=== PATIENT | female | born 1980 | race Caucasian/White ===

== ENCOUNTER → 2021-08-18 13:59 | Outpatient (BNVA) | payer OTHER, MEDICAID, SELFPAY | PROVIDERS: PCP Internal Medicine; Visit Provider Physician Assistant | DX: Z68.36 Body mass index [BMI] 36.0-36.9, adult (principal); Z90.3 Acquired absence of stomach [part of] | CPT/HCPCS: 99202 ==

== ENCOUNTER → 2021-08-27 10:34 | Outpatient (BNVA) | payer OTHER, SELFPAY | PROVIDERS: PCP Internal Medicine; Visit Provider Physician Assistant ==

== ENCOUNTER 2021-09-05 07:32 | Outpatient (REF) | payer OTHER, SELFPAY ==
[2021-09-05 08:19] LABS: Basophils Percent Auto 0.4 % (0-2); Eosinophils Absolute Auto 0.1 X10*3/uL (0.0-0.4); Hematocrit 40.1 % (37.0-47.0); Hemoglobin 13.3 g/dl (12.0-16.0); Imm Gran Abs Auto 0.01 X10*3/uL (0.00-0.03); Imm Gran Pct Auto 0.2 % (0.0-0.4); Lymphocytes Percent Auto 19.3 % (20-40); MANUAL DIFF FLAG SCAN; Mean Corpuscular HGB Conc 33.2 g/dl (31.0-35.0); Mean Corpuscular Hemoglobin 28.7 pg (27.0-33.0); Mean Corpuscular Volume 86.6 fL (80.0-98.0); Mean Platelet Volume 10.7 fL (9.4-12.3); Monocytes Absolute Auto 0.4 X10*3/uL (0.1-1.2); Monocytes Percent Auto 7.5 % (2-11); Neutrophils Absolute Auto 3.7 x10*3/uL (2.0-8.3); Neutrophils Percent Auto 71.6 % (45-73); PLT CLUMP 1; Red Blood Count 4.63 X10*6/uL (4.20-5.50); Red Cell Distribution Width 12.5 % (11.0-16.0); SCAN SMEAR FLAG 1
[2021-09-05 08:25] LABS: Estimated Average Glucose 108 mg/dL; Hemoglobin A1c % 5.4 %
[2021-09-05 08:41] LABS: Alanine Aminotransferase 9 U/L (0-31); Albumin Level 3.9 g/dL (3.5-5.0); Alkaline Phosphatase 67 U/L (39-117); Anion Gap 13 (12-20); Aspartate Amino Transferase 9 U/L (5-31); Bilirubin Total 0.3 mg/dL (0.0-1.0); Blood Urea Nitrogen 10 mg/dL (9-16); C Reactive Protein 1.26 mg/dL (< or = 0.50); Calcium 9.1 mg/dL (8.4-10.2); Carbon Dioxide 25 mmol/L (22-29); Chloride 106 mmol/L (96-108); Cholesterol 197 mg/dL; Estimated Glomerular Filt Rate > 60; Glucose Random 88 mg/dL (60-115); HDL Cholesterol 55 mg/dL; Iron 56 mcg/dL (30-160); LDL Cholesterol Calculated 127 mg/dl; Percent Iron Saturation 15 % (15-50); Potassium 4.5 mmol/L (3.3-5.1); Sodium 139 mmol/L (135-145); Total Iron Binding Capacity 384 mcg/dL (228-428); Total Protein 6.6 g/dL (6.5-8.0); Triglycerides 79 mg/dL; Unsaturated Iron Binding 328 ug/dL
[2021-09-05 09:13] LABS: Ferritin 35 ng/mL (10-250); TSH reflex Free T4 1.58 uIU/mL (0.32-4.0); Vitamin D 25-OH Total 16.6 ng/mL (>30)
[2021-09-05 09:25] LABS: Platelet Count 183 X10*3/uL (160-400); White Blood Count 5.2 X10*3/uL (4.8-10.8)
[2021-09-05 09:26] LABS: SLIDE REVIEW VERIFIED
[2021-09-05 11:58] LABS: Insulin 8 uU/mL (2-29)
[2021-09-07 09:21] LABS: Vitamin B12 524 pg/mL (200-900)
[2021-09-07 14:57] LABS: Calcium (PTHI) 8.9 mg/dL (8.6-10.2); PTHI 79 pg/mL (14-64)
[2021-09-08 16:11] LABS: Zinc 53 mcg/dL (60-130)
[2021-09-10 01:17] LABS: Vitamin A 38 mcg/dL (38-98)
[2021-09-12 10:41] LABS: Vitamin B1 11 nmol/L (8-30)
== END 2021-09-05 07:33 | disposition home or self-care (01) ==
LOC: HO.LAB 07:32
PROVIDERS: PCP Internal Medicine; Visit Provider Physician Assistant
DX: Z01.818 Encounter for other preprocedural examination (principal); E66.9 Obesity, unspecified; Z90.3 Acquired absence of stomach [part of]
CPT/HCPCS: 36415; 80053; 80061; 82306; 82607; 82728; 82746; 83036; 83525; 83540; 83970; 84425; 84443; 84590; 84630; 85025; 86140

== ENCOUNTER 2021-09-23 15:49 | Outpatient (REF) | payer OTHER, SELFPAY ==
[2021-09-24 13:07] LABS: H Pylori Breath Test Negative (Negative)
== END 2021-09-23 15:50 | disposition home or self-care (01) ==
LOC: CF 15:49
PROVIDERS: Visit Provider Physician Assistant
DX: E66.9 Obesity, unspecified (principal); Z90.3 Acquired absence of stomach [part of]
CPT/HCPCS: 36415; 83013; 99211; 99212

== ENCOUNTER → 2021-09-24 08:02 | Outpatient (BNVA) | payer OTHER, SELFPAY | PROVIDERS: PCP Internal Medicine; Visit Provider Dietitian, Registered ==

== ENCOUNTER → 2021-10-08 08:23 | Outpatient (BNVA) | payer OTHER, SELFPAY | PROVIDERS: PCP Internal Medicine; Referring Provider Physician Assistant; Visit Provider Dietitian, Registered | DX: E66.9 Obesity, unspecified (principal); Z68.35 Body mass index [BMI] 35.0-35.9, adult; Z71.3 Dietary counseling and surveillance | CPT/HCPCS: 97802 ==

== ENCOUNTER 2021-10-12 09:04 | Outpatient (REF) | payer OTHER, SELFPAY ==
--- NOTE | ~2021-10-12 | US_ITS ---
EXAMINATION: US COMPLETE ABDOMEN WITH LIVER ELASTOGRAPHY CLINICAL INFORMATION: Obesity COMPARISON: None. TECHNIQUE: Real-time imaging of the abdominal viscera. Noninvasive ultrasound liver fibrosis assessment is performed using Kyler ElastPQ point quantification shear wave elastography (2D-SWE) with a C5-2 MHz transducer. Multiple elastography samples are obtained. FINDINGS: PANCREAS: Normal. The visualized pancreatic head and body are normal in appearance. The remainder of the pancreas is obscured from visualization by the overlying bowel gas. ABDOMINAL AORTA: The proximal, middle, and distal aortic segments are normal in caliber. INFERIOR VENA CAVA: Visualized portions are normal. LIVER: Mild diffuse increased hepatic echogenicity. Hepatic contour appears unremarkable. No focal lesion or intrahepatic biliary duct dilatation. The right lobe measures 13 cm in length. The left lobe measures 10.9 cm in length. Portal flow is hepatopedal Shear wave liver elastography median stiffness is 1.62 m/s (reference: normal median stiffness is 1.3 m/s or less). IQR/median stiffness to assess sampling precision is 0.41 (reference: good quality data set is IQR/median stiffness of 0.15 or less). GALLBLADDER: Surgically absent. COMMON BILE DUCT: Normal in caliber measuring 0.23 cm in diameter. RIGHT KIDNEY: Normal. No hydronephrosis. No renal calculi or focal parenchymal lesions. The kidney measures 11.8 cm in maximum dimension. LEFT KIDNEY: Normal. No hydronephrosis. No renal calculi or focal parenchymal lesions. The kidney measures 10.4 cm in maximum dimension. SPLEEN: Normal. The spleen measures 12.1 cm in maximum dimension. FREE FLUID: None. US/US abdomen comp w elastography IMPRESSION: 1. Diffuse increased hepatic echogenicity, differential consideration include hepatic steatosis, hepatocellular disease. No focal lesion seen. No biliary duct dilatation. 2. Liver elastography: Median stiffness 1.62 m/s. Liver Stiffness less than 1.7 m/s: In the absence of other known clinical signs, rules out compensated advanced chronic liver disease. 3.IQR/median stiffness to assess sampling precision is 0.41. This is suboptimal, ideally should be 0.15 or less. 4. Status post cholecystectomy. REFERENCE: Society of Radiologists in Ultrasound Liver Stiffness Thresholds (2020): LIVER STIFFNESS THRESHOLDS: *Liver Stiffness equal or less than 1.3 m/s: High probability of being normal. *Liver Stiffness less than 1.7 m/s: In the absence of other known clinical signs, rules out compensated advanced chronic liver disease. *Liver Stiffness 1.7-2.1 m/s: Suggestive of compensated advanced chronic liver disease but need further test for confirmation. *Liver Stiffness over 2.1 m/s: Rules in compensated advanced chronic liver disease. *Liver Stiffness over 2.4 m/s: Suggestive of clinically significant portal hypertension. QUALITY OF DATA SET: *IQR/Median value equal or less than 0.15 implies a quality data set. *IQR/Median value over 0.15 implies a poor quality data set. SIGNIFICANT CHANGE FROM PRIOR EXAM: Significant change if liver stiffness measurement is 10% or greater from prior exam. OTHER CONSIDERATIONS: The stage of liver fibrosis may be overestimated in the setting of acute hepatitis, liver inflammation, elevated liver function tests, hepatic vascular congestion, obstructive cholestasis, non-fasting state, and infiltrative diseases such as amyloidosis and lymphoma. In some patients with NAFLD, the liver stiffness thresholds for compensated advanced chronic liver disease may be lower. In causes other than viral hepatitis and NAFLD, liver stiffness thresholds are not well established.
--- NOTE | ~2021-10-12 | FL_ITS ---
EXAMINATION: XR FLUOROSCOPY UPPER GI WITH AIR CLINICAL INFORMATION: Obesity. Gastric sleeve surgery 5 years ago at [facility]. COMPARISON: None. TECHNIQUE: Routine upper GI air-contrast study was performed. FINDINGS: Following oral administration of thick barium and effervescent granules, there is normal propagation of bolus from the oral cavity through the pharynx and esophagus and into the stomach without any evidence of obstruction, and narrowing or stricture. On placing supine and prone, there is lrlgtdrz-ph-obcjz gastroesophageal reflux. There is evidence of gastric reduction sleeve surgery with remaining stomach, duodenal bulb and the sweep appearing normal caliber. The mucosal pattern of the stomach and the duodenum is unremarkable. No hiatal hernia seen. FLUOROSCOPY TIME: 1.7 minutes DOSE AREA PRODUCT: 30.035 uGy-m2 (microgray-meter squared) FL/FL upper GI w air IMPRESSION: Fozuaoef-xc-jgvhl gastroesophageal reflux without hiatal hernia. There is gastric reduction surgical changes. The mucosal pattern of stomach, duodenum and the sweep is normal.
--- NOTE | ~2021-10-12 | XR_ITS ---
EXAMINATION: XR CHEST CLINICAL INFORMATION: Preprocedure examination COMPARISON: None TECHNIQUE: 2 views of the chest were obtained. FINDINGS: The lungs are well-expanded. There is no focal consolidation, edema or effusion. No pneumothorax. The cardiomediastinal silhouette is within normal limits. No acute osseous abnormality. XR/XR chest 2V IMPRESSION: No acute pulmonary disease.
== END 2021-10-12 09:05 | disposition home or self-care (01) ==
LOC: HO.US 09:04
PROVIDERS: PCP Internal Medicine; Visit Provider Physician Assistant
DX: Z01.818 Encounter for other preprocedural examination (principal); E66.9 Obesity, unspecified; Z90.3 Acquired absence of stomach [part of]
CPT/HCPCS: 71046; 74246; 76705; 76981

== ENCOUNTER → 2021-11-05 08:23 | Outpatient (BNVA) | payer OTHER, SELFPAY | PROVIDERS: PCP Internal Medicine; Referring Provider Physician Assistant; Visit Provider Dietitian, Registered | DX: E66.9 Obesity, unspecified (principal) | CPT/HCPCS: 97803 ==

== ENCOUNTER → 2021-12-03 08:11 | Outpatient (BNVA) | payer OTHER, SELFPAY | PROVIDERS: PCP Internal Medicine; Referring Provider Physician Assistant; Visit Provider Dietitian, Registered | DX: Z13.89 Encounter for screening for other disorder (principal) ==

== ENCOUNTER → 2021-12-17 15:48 | Outpatient (BNVA) | payer OTHER, SELFPAY | PROVIDERS: PCP Internal Medicine; Visit Provider Physician Assistant | DX: Z13.89 Encounter for screening for other disorder (principal) ==

== ENCOUNTER 2022-06-30 08:57 | Outpatient (REF) | payer OTHER, SELFPAY ==
[2022-06-30 10:20] LABS: MANUAL DIFF FLAG NO
--- NOTE | 2022-06-30 10:23 | ECG_ITS ---
Test Reason : pre op Blood Pressure : / mmHG Vent. Rate : 072 BPM Atrial Rate : 072 BPM P-R Int : 148 ms QRS Dur : 084 ms QT Int : 366 ms P-R-T Axes : -09 021 019 degrees QTc Int : 400 ms Normal sinus rhythm Normal ECG No previous ECGs available Referred By: Piper Pavon Electronically Signed By:RUDY ENCARNACION MD
[2022-06-30 10:55] LABS: Basophils Percent Auto 0.8 % (0-2); Eosinophils Absolute Auto 0.1 X10*3/uL (0.0-0.4); Eosinophils Percent Auto 2.2 % (0-4); Hematocrit 42.9 % (37.0-47.0); Imm Gran Abs Auto 0.01 X10*3/uL (0.00-0.03); Imm Gran Pct Auto 0.2 % (0.0-0.4); Lymphocytes Absolute Auto 1.1 X10*3/uL (1.2-4.9); Lymphocytes Percent Auto 22.7 % (20-40); Mean Corpuscular HGB Conc 32.6 g/dl (31.0-35.0); Mean Corpuscular Hemoglobin 28.9 pg (27.0-33.0); Mean Corpuscular Volume 88.5 fL (80.0-98.0); Mean Platelet Volume 10.5 fL (9.4-12.3); Monocytes Absolute Auto 0.4 X10*3/uL (0.1-1.2); Monocytes Percent Auto 8.6 % (2-11); Neutrophils Absolute Auto 3.2 x10*3/uL (2.0-8.3); Neutrophils Percent Auto 65.5 % (45-73); Platelet Count 242 X10*3/uL (160-400); Red Blood Count 4.85 X10*6/uL (4.20-5.50); Red Cell Distribution Width 13.2 % (11.0-16.0); White Blood Count 4.9 X10*3/uL (4.8-10.8)
[2022-06-30 11:17] LABS: Estimated Average Glucose 108 mg/dL; Hemoglobin A1c % 5.4 %
[2022-06-30 11:49] LABS: Alanine Aminotransferase 31 U/L (0-31); Albumin Level 4.2 g/dL (3.5-5.0); Alkaline Phosphatase 75 U/L (39-117); Anion Gap 13 (12-20); Aspartate Amino Transferase 13 U/L (5-31); Bilirubin Total 0.4 mg/dL (0.0-1.0); Blood Urea Nitrogen 12 mg/dL (9-16); C Reactive Protein 0.84 mg/dL (< or = 0.50); Calcium 9.5 mg/dL (8.4-10.2); Carbon Dioxide 29 mmol/L (22-29); Chloride 102 mmol/L (96-108); Cholesterol 265 mg/dL; Estimated Glomerular Filt Rate > 60; Glucose Random 77 mg/dL (60-115); HDL Cholesterol 78 mg/dL; Iron 123 mcg/dL (30-160); LDL Cholesterol Calculated 147 mg/dl; Percent Iron Saturation 27 % (15-50); Potassium 4.4 mmol/L (3.3-5.1); Sodium 140 mmol/L (135-145); Total Iron Binding Capacity 457 mcg/dL (228-428); Total Protein 6.9 g/dL (6.5-8.0); Triglycerides 200 mg/dL; Unsaturated Iron Binding 334 ug/dL
[2022-06-30 12:13] LABS: Folate 10.8 ng/mL (> or = 4.0); Vitamin B12 341 pg/mL (200-900)
[2022-06-30 12:15] LABS: Ferritin 42 ng/mL (10-250); Insulin 9 uU/mL (2-29); TSH reflex Free T4 1.57 uIU/mL (0.32-4.0)
[2022-06-30 13:55] LABS: Vitamin D 25-OH Total 22.3 ng/mL (>30)
[2022-07-01 14:16] LABS: Calcium (PTHI) 9.4 mg/dL (8.6-10.2); PTHI 90 pg/mL (16-77)
[2022-07-04 17:15] LABS: Vitamin A 79 mcg/dL (38-98)
[2022-07-05 09:47] LABS: Zinc 84 mcg/dL (60-130)
[2022-07-06 05:50] LABS: Vitamin B1 9 nmol/L (8-30)
== END 2022-06-30 08:58 | disposition home or self-care (01) ==
LOC: HO.LAB 08:57
PROVIDERS: PCP Internal Medicine; Visit Provider Physician Assistant Surgical
DX: Z01.818 Encounter for other preprocedural examination (principal); E66.9 Obesity, unspecified; Z90.3 Acquired absence of stomach [part of]
CPT/HCPCS: 36415; 80053; 80061; 82306; 82607; 82728; 82746; 83036; 83525; 83540; 83970; 84425; 84443; 84590; 84630; 85025; 86140; 93005; 99212

== ENCOUNTER 2022-07-02 09:45 | Outpatient (REF) | payer OTHER, SELFPAY ==
--- NOTE | ~2022-07-02 | XR_ITS ---
EXAMINATION: XR CHEST CLINICAL INFORMATION: Preprocedure COMPARISON: Previous chest x-ray September 2021 TECHNIQUE: 2 views of the chest were obtained. FINDINGS: No significant abnormality is noted involving the heart, lungs, mediastinum, bony thorax or soft tissues. XR/XR chest 2V IMPRESSION: Unremarkable examination.
== END 2022-07-02 09:46 | disposition home or self-care (01) ==
LOC: HO.XRAY 09:45
PROVIDERS: PCP Internal Medicine; Visit Provider Physician Assistant Surgical
DX: Z01.818 Encounter for other preprocedural examination (principal)
CPT/HCPCS: 71046

== ENCOUNTER → 2022-07-27 10:16 | Outpatient (BNVA) | payer OTHER, SELFPAY | PROVIDERS: PCP Internal Medicine; Visit Provider Physician Assistant Surgical | DX: E66.9 Obesity, unspecified (principal); Z68.37 Body mass index [BMI] 37.0-37.9, adult | CPT/HCPCS: 99212 ==

== ENCOUNTER → 2022-08-18 10:26 | Outpatient (BNVA) | payer OTHER, SELFPAY | PROVIDERS: PCP Internal Medicine; Visit Provider Physician Assistant Surgical | DX: E66.9 Obesity, unspecified (principal); Z68.38 Body mass index [BMI] 38.0-38.9, adult | CPT/HCPCS: 99212 ==

== ENCOUNTER → 2022-09-30 10:23 | Outpatient (BNVA) | payer OTHER, SELFPAY | PROVIDERS: PCP Internal Medicine; Visit Provider Physician Assistant Surgical | DX: E66.9 Obesity, unspecified (principal); Z68.37 Body mass index [BMI] 37.0-37.9, adult | CPT/HCPCS: 99212 ==

== ENCOUNTER → 2022-10-07 10:58 | Outpatient (BNVA) | payer OTHER, SELFPAY | PROVIDERS: PCP Internal Medicine; Visit Provider Dietitian, Registered | DX: E66.9 Obesity, unspecified (principal); Z71.3 Dietary counseling and surveillance | CPT/HCPCS: 97803 ==

== ENCOUNTER → 2022-10-29 10:24 | Outpatient (BNVA) | payer OTHER, SELFPAY | PROVIDERS: PCP Internal Medicine; Visit Provider Physician Assistant Surgical | DX: E66.9 Obesity, unspecified (principal); Z68.37 Body mass index [BMI] 37.0-37.9, adult | CPT/HCPCS: 99212 ==

== ENCOUNTER 2024-12-05 14:14 | Outpatient (REF) | payer OTHER, SELFPAY ==
--- NOTE | ~2024-12-05 | XR_ITS ---
EXAMINATION: XR LUMBOSACRAL SPINE CLINICAL INFORMATION: PAIN COMPARISON: None available. TECHNIQUE: Three views of the lumbosacral spine. FINDINGS: Marginal osteophyte formation and syndesmophyte formation at T11-12 T12-L1 levels. Endplate sclerosis and decreased intervertebral disc height involving the lower thoracic spine, L1-2, and L3-4. No acute cortical disruption or malalignment. No lytic or blastic lesions. Spina bifida occulta, S1. XR/XR lumbar spine 2-3V IMPRESSION: Multilevel lower thoracic and lumbar spondylosis, mild. Seronegative arthritis should be considered. Electronically signed by: Levi Escobar MD 12/07/2024 09:51 AM EDT
--- OUTSIDE RECORDS SUMMARY | 2024-12-05 17:10 | XMS_ITS ---
Author Organization [facility] Address [address] [place], [place] [id number] Care Team Providers Care Weight Control Lecturer Name Role Phone [facility] Primary Care Provider Brian Salinas Unavailable [phone] Encounters Encounter Location Date Provider Diagnosis [facility] [address] [place] [address] [phone] 06/07/2023 Brian Goncalves Plan Of Treatment No Information Progress Notes * Miladis KRAFTDOB:1979 (43 yo F)Acc No.[id number]:06/07/2023 Patient:?Miladis Kraft :1980???Age:43 Y???Sex:Female Address:[address], [place] [address] * true * Date:? Generated for Sasha jama/Law/eTransmitting on:?12/05/2024 05:10 PM EDT
--- OUTSIDE RECORDS SUMMARY | 2024-12-05 17:10 | XMS_ITS | Clinical Summary ---
Author Organization [facility] [employer] [facility] it Address [address] [place] [address] Care Team Providers Care Globe Cleaner Name Role Phone Marii Stack MD Primary Care Provider [phone] Surgical History Surgery Date Site/Laterality Comments CHOLECYSTECTOMY PROCEDURE: VT LAPAROSCOPY SURG CHOLECYSTECTOMY HYSTERECTOMY PROCEDURE: HISTORICAL HYSTERECTOMY OTHER SURGICAL HISTORY PROCEDURE: HISTORICAL SUPRACERVICAL HYSTERECTOMY W/O BSO GASTRIC BYPASS PROCEDURE: VT GASTRIC RSTCV W/BYP W/SM INT RCNSTJ LIMIT ABSRPJ Medical History Medical History Date Comments History of bilateral tubal ligation DX:History of bilateral tubal ligation Bunion of great toe of right foot DX:Bunion of great toe of right foot Carpal tunnel syndrome DX:Carpal tunnel syndrome Chest pain DX:Chest pain Chronic arthralgias of knees and hips DX:Chronic arthralgias of knees and hips; COMMENT: and elbows Chronic constipation DX:Chronic constipation Chronic headache disorder DX:Chr onic headache disorder 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 DX:ADELE III (cervical intraep 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 Cough with fever DX:Cough with f ever Fibromyalgia DX:Fibromyalgia Gastroesophageal reflux disease DX:Gastroesophageal reflux disease Infectious mononucleosis DX:Infe ctious mononucleosis Migraine headache with aura DX:M igraine headache with aura Calcium nephrolithiasis DX:Calci um nephrolithiasis Obesity DX:Obesity LGSIL Pap smear of vagina DX:LGS IL Pap smear of vagina Trochanteric bursitis DX:Trochan teric bursitis; COMMENT: bilateral Ankle sprain DX:Ankle sprain Iron deficiency anemia DX:Iron d eficiency anemia Social History Tobacco Use Types Packs/Day Years Used Date Smoking Tobacco: Never Assessed Comments Unknown Sex and Gender Information Value Date Recorded Sex Assigned at Not on file Legal Sex Female 3:24 AM EST Gender Identity Not on file Sexual Orientation Not on file Obstetrics History Last Filed Vital Signs Vital Sign Reading Time Taken Comments Blood Pressure 113/76 01/12/2022 3:22 PM EDT Pulse 89 01/12/2022 3:22 PM EDT Temperature - - Respiratory Rate - - Oxygen Saturation - - Inhaled Oxygen Concentration - - Weight 93.9 kg (207 lb 1.3 oz) 01/12/2022 3:22 P M EDT Height 158.8 cm (5' 2.5 ) 01/12/2022 3:22 PM EDT Body Mass Index 37.27 01/12/2022 3:22 PM EDT Plan of Treatment Health Maintenance Due Date Last Done Comments Breast Cancer Screening 1980 DTaP,Tdap,and Td Vaccines (1 - Tdap) 1997 Hepatitis B Vaccines (1 of 3 - 19+ 3-dose series) 1997 Cervical Cancer Screening: P ap Smear 1999 Colorectal Cancer Screening: Colonoscopy 07/18/2022 Depression Screening 07/18/2022 HIV Screening 07/18/2022 Hepatitis C Screening 07/18/2022 Social Influencers of Health Screening 07/18/2022 COVID-19 Vaccine (2023-2 5 season) 2024 Influenza Vaccine (Season Ended) 2025 HIB Vaccines Aged Out No longer eligi ble based on patient's age to complete this topic HPV Vaccines Aged Out No longer eligi ble based on patient's age to complete this topic Hepatitis A Vaccines Aged Out No long er eligible based on patient's age to complete this topic IPV Vaccines Aged Out No longer eligi ble based on patient's age to complete this topic MMR Vaccines Aged Out No longer eligi ble based on patient's age to complete this topic Meningococcal ACWY Vaccine Aged Out N o longer eligible based on patient's age to complete this topic Meningococcal B Vaccine Aged Out No l onger eligible based on patient's age to complete this topic Pneumococcal Vaccine: Pediat rics (0 to 5 Years) and At-Risk Patients (6 to 64 Years) Aged Out No longer eligible b ased on patient's age to complete this topic RSV Immunization Patients Un latrice 20 months Aged Out No longer eligible b ased on patient's age to complete this topic Varicella Vaccines Aged Out No longer eligible based on patient's age to complete this topic Care Teams Globe Cleaner Relationship Specialty Start Date End Date Marii Stack MD [address] [place] [address] PCP - General Internal Medicine 01/05/22
--- OUTSIDE RECORDS SUMMARY | 2024-12-05 17:10 | XMS_ITS ---
Author Organization [facility] Address [address] [facility] [address] [place], [place] [id number] Care Team Providers Care Pick Up Worker Name Role Phone [facility] Primary Care Provider Ki mccrayeliasnicholas Goncalves Brian Unavailable [phone] Encounters Encounter Location Date Provider Diagnosis [facility] [address] [place] [phone] 07/05/2023 Brian Goncalves Plan Of Treatment No Information Progress Notes * Miladis KRAFTDOB:1979 (44 yo F)Acc No.[id number]:07/05/2023 Case Management Patient:?Miladis KRAFT Provider:?Brian Carter :1980???Age:43 Y???Sex:Female D ate:07/05/2023 Address:[address] [facility] Pcp:[facility] Subjective: * Chief Complaints: * ??? * Medical History:? Objective: Assessment: Plan: * Treatment: * Images: Billing Information: * Visit Code:? * Procedure Codes:? Care Plan Details* * Electronic signature of Brian Goncalves on 12/05/2024 at 05:10 PM EDT Sign off status: Pending * Provider:Joyce Carter Date:?07/05/2023 Generated for Sasha jama/Law/eTransmitting on:?12/05/2024 05:10 PM EDT
--- OUTSIDE RECORDS SUMMARY | 2024-12-05 17:10 | XMS_ITS ---
Author Organization [facility] Address [address] [place], [place] [phone] Care Team Providers Care Studio Potter Name Role Phone [facility] Primary Care Provider Brian Salinas Unavailable [phone] Encounters Encounter Location Date Provider Diagnosis [facility] [address] [place] [phone] 06/06/2023 Brian Goncalves Plan Of Treatment No Information Progress Notes * Miladis KRAFTDOB:1979 (43 yo F)Acc No.[id number]:06/06/2023 Patient:?Miladis Kraft :1980???Age:43 Y???Sex:Female Address:[address], [place] [address] * true * Date:? Generated for Sasha jama/Law/eTransmitting on:?12/05/2024 05:10 PM EDT
--- OUTSIDE RECORDS SUMMARY | 2024-12-05 17:10 | XMS_ITS | Patient Health Record ---
Author Organization [facility] Address [address] [place], [place] [phone] Care Team Providers Care Mandarin Chinese Teacher Name Role Phone [facility] Primary Care Provider Brian Salinas [phone] Reason For Referral No Information Plan Of Treatment No Information Insurance Providers Payer Name Payer Address Payer Phone Subscriber Number Group Number Insured Name Patient Relationship to Insured Coverage Start Date Coverage End Date [place] Standard [address] [place] [address] [id number] Miladis Best Self - patient is the insured 3 3
== END 2024-12-05 14:15 | disposition home or self-care (01) ==
LOC: HO.XRAY 14:14
PROVIDERS: PCP Internal Medicine; Visit Provider Registered Nurse
DX: M54.9 Dorsalgia, unspecified (principal)
CPT/HCPCS: 72100

== ENCOUNTER → 2024-12-05 14:25 | Outpatient (BNV) | payer OTHER, SELFPAY | PROVIDERS: PCP Internal Medicine; Visit Provider Radiology Diagnostic Radiology | DX: M54.50 Low back pain, unspecified (principal) | CPT/HCPCS: 72100 ==

== ENCOUNTER 2025-03-26 14:58 | Outpatient (AMB) | payer OTHER, SELFPAY ==
--- NOTE | 2025-03-26 15:42 | A.OFFVIS_ITS ---
Intake Visit Reasons: 6 weeks Allergies No Known Allergies Allergy (Verified 03/26/25 15:47) Medication List - Last Reconciled 03/26/25 by Mabel Milian CNP buspirone 10 mg PO BID celecoxib (Celebrex) 200 mg PO BID cholecalciferol (vitamin D3) 125 mcg PO DAILY cyanocobalamin (vitamin B-12) 500 mcg PO DAILY diclofenac sodium 75 mg PO BID PRN doxepin (Silenor) 3 mg PO BEDTIME PRN dulaglutide (Trulicity) 4.5 mg subcut QWEEK duloxetine 60 mg PO DAILY gabapentin 800 mg PO TID hydroxyzine HCl 25 mg PO TID PRN prednisone 40 mg PO DAILY PRN sertraline 25 mg PO DAILY sumatriptan succinate 50 mg PO tizanidine 4 mg PO TID PRN topiramate 50 mg PO BID verapamil ER 240 mg PO DAILY HPI Comments Details: 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 Ongoing generalized body pains from FM. Following with [facility] and [facility]. Had injection to back and both hips which did not help much, and will be getting injection to knees and R shoulder. Has numbness, needle-type and burning-type pain in legs, describes as feeling like ?hot water? on legs. Was off duloxetine for period of time due to insurance issue, back on medication. Taking gabapentin 800mg three times a day. Walking with cane, no falls. Headaches are happening about 4x/week with photophobia and sonophobia. May be triggered by bright light and sun. Sleep was not so good, despite reported recent doxepin dose increase. Mood was not so good because of the pain. She has upcoming appointment with psychiatrist and works with therapist weekly. Generalized body pains from FM, burning-type. Back pain all over, feels like ?pinching? or burning, worse if sitting or standing too long. Topiramate had helped with headaches some initially. Throbbing-type pain with photophobia and sonophobia, no nausea or vomiting. Pain in arms and hands. Always in pain, burning inside body, and lot of fatigue. Had stopped working. Pain whole body despite taking gabapentin and duloxetine. Bilateral lateral ankle pain and pain in right wrist and forearm. Since 2014, she has had pain all over her body, including her back, limbs proximally and distally, in the joints, and muscles. Around 2017, she started with numbness and tingling in her hands intermittently. No persistent numbness, burning, or tingling in her feet. No weakness. No trouble with cognitive abilities. No trouble with bladder or bowel control. [facility], [facility] Medical History (Updated 03/26/25 @ 16:09 by Mabel Milian CNP) Migraine Insomnia Tension headache Fibromyalgia Peripheral neuropathy Surgical History Hx of tubal ligation Hx of cholecystectomy Hx of abdominal hysterectomy History of sleeve gastrectomy Family History Mother Thyroid condition Diabetes Ovarian cancer Anemia Heart problem Father Heart problem Sister Heart problem Breast cancer Sister Anemia Diabetes Sister Diabetes Thyroid condition Sister No problems noted. Sister No problems noted. Brother Anemia Diabetes Brother No problems noted. Brother Diabetes Brother No problems noted. Brother No problems noted. Social History Alcohol intake: never Patient Tobacco Use Status: Never used Tobacco Review of Systems Const Denies chills, Denies daytime sleepiness, Reports difficulty sleeping, Reports fatigue, Denies fever(s), Denies frequent falls, Reports headache(s), Denies increased appetite, Denies poor appetite, Denies snoring, Denies weakness, Denies weight gain and Denies weight loss Eyes Denies loss of vision ENT Denies vertigo, Denies dizziness, Reports headache(s) and Reports neck pain Card Denies chest pain at rest, Denies chest pain with activity, Denies syncope, Denies leg edema, Denies palpitations, Denies dyspnea and Denies dyspnea on exertion Resp Denies cough, Denies dyspnea, Denies dyspnea on exertion and Denies snoring GI Denies abdominal pain, Denies constipation, Denies heartburn, Denies diarrhea and Denies nausea Denies urinary frequency, Denies urinary incontinence and Denies urinary urgency Musc Denies abnormal gait, Reports back pain, Reports myalgias, Reports arthralgias, Reports neck pain, Reports numbness and Denies tingling Neuro Denies abnormal gait, Denies vertigo, Denies dizziness, Denies syncope, Denies frequent falls, Reports headache(s), Denies lack of coordination, Denies loss of vision, Denies memory loss, Reports numbness, Denies Other visual disturbances, Denies restless legs, Denies seizure-like activity, Denies tingling, Denies paresthesias, Denies tremor(s) and Denies weakness Psych Reports anxiety, Reports depression, Denies auditory hallucinations, Denies memory loss and Denies visual hallucinations Endo Reports fatigue and Denies palpitations Physical Exam Const Other: General Appearance:? normal, in no acute distress. Heart:? S1, S2 normal, no murmurs. Lungs:? clear anteriorly and posteriorly. Musculoskeletal:? normal. Extremities:? no edema. Psych:? alert, oriented, cognitive function intact, cooperative with exam. Neuro Other: Abnormal Neurological Findings:?Submaximal effort on motor testing. Walking with cane. Mental Status: alert and oriented X 3. Normal attention, orientation, memory, and affect. Cranial Nerves: Pupils are equal, round, and reactive to light. External ocular muscles are intact. Visual millan are full, no ptosis. Face is symmetrical, no facial weakness or droop. Facial sensations are normal. Tongue protrudes in midline. Palate elevates symmetrically. Shoulder shrugging is normal Motor Examination: Normal muscle tone, bulk and strength. No atrophy or fasciculations. No drift of the extended upper extremities. DTR 2+. Plantars are flexor. Sensory Exam: Normal light touch, temperature, pinprick, vibration, and joint- position sensations. Rhomberg sign is absent. Coordination: No ataxia. No titubation. Gait Exam: With came. Cerebellar Signs: Nhypac-wz-fvoq is okay. Extrapyramidal System: No tremor, rigidity with normal facial expressions. No bradykinesia. No bradyphrenia. Normal arm swing and posture. No propulsion or retropulsion. Speech: Normal. No dysphasia or dysarthria. Results Reviewed Results Reviewed: [address] [address] XRay Report Signed Patient: Miladis Best MR#: [id number] : 1980 Acct:[id number] Age/Sex: 44 / F ADM Date: 12/05/24 Loc: [facility] Attending Dr: Mabel Milian CNP Ordering Physician: Maebl Milian CNP Date of Service: 12/05/24 Procedure(s): XR lumbar spine 2-3V Accession Number(s): [id number] cc: Marii Stack MD; Mabel Milian CNP~ EXAMINATION: XR LUMBOSACRAL SPINE CLINICAL INFORMATION: PAIN COMPARISON: None available. TECHNIQUE: Three views of the lumbosacral spine. FINDINGS: Marginal osteophyte formation and syndesmophyte formation at T11-12 T12-L1 levels. Endplate sclerosis and decreased intervertebral disc height involving the lower thoracic spine, L1-2, and L3-4. No acute cortical disruption or malalignment. No lytic or blastic lesions. Spina bifida occulta, S1. XR/XR lumbar spine 2-3V IMPRESSION: Multilevel lower thoracic and lumbar spondylosis, mild. Seronegative arthritis should be considered. Electronically signed by: Levi Escobar MD 12/07/2024 09:51 AM EDT RP Dictated By: Levi Dejesus MD Signed By: <Electronically signed by Levi Streeter MD in OV> 12/07/24 0951 -- 07/05/22 NCV/EMG ALL Normal motor and sensory nerve conduction velocities in the upper and lower extremities. Normal EMG in the left C5-T1 and left L4- S1 innervated muscles. Assessment & Plan Assessment & Plan (1) Fibromyalgia: Code(s): M79.7 - Fibromyalgia Category: Medical Plan: Continue gabapentin 800mg 1 tablet three times a day. She was also taking duloxetine and prednisone which may also help with fibromyalgia symptoms. (2) Migraine: Code(s): G43.909 - Migraine, unspecified, not intractable, without status migrainosus Category: Medical Qualifiers: Migraine type: unspecified Status migrainosus presence: without status migrainosus Intractability: not intractable Qualified Code(s): G43.909 - Migra ine, unspecified, not intractable, without status migrainosus Plan: Topiramate did not help with migraine and medication was stopped. Start Depakote 250mg 1 tablet at bedtime, use/side effects reviewed. Continue sumatriptan 50mg 1 tablet as needed for migraine. (3) Tension headache: Code(s): G44.209 - Tension-type headache, unspecified, not intractable Category: Medical (4) Insomnia: Code(s): G47.00 - Insomnia, unspecified Category: Medical Qualifiers: Insomnia type: unspecified Qualified Code(s): G47.00 - Insomnia, unspecified (5) Lumbar disc disease: Code(s): M51.9 - Unspecified thoracic, thoracolumbar and lumbosacral intervertebral disc disorder Category: Medical Plan: She was following with [facility] and [facility]. (6) Anxiety and depression: Code(s): F41.9 - Anxiety disorder, unspecified; F32.A - Depression, unspecified Category: Medical Plan: Continue to work with therapist and psychiatrist. She had phone number for crisis if needed. Plan Meds tried: amitriptyline, pregabalin, duloxetine, topiramate Medications: New divalproex (Depakote) 250 mg PO BEDTIME 30 tabs 2RF 30 days Coding Level of Care Code Est Pt Level 4 (91499) Diagnoses Fibromyalgia M79.7 Migraine without status migrainosus, not intractable, unspecified migraine type G43.909 Migraine type: unspecified Status migrainosus presence: without status migrainosus Intractability: not intractable Tension headache G44.209 Insomnia, unspecified type G47.00 Insomnia type: unspecified Lumbar disc disease M51.9 Anxiety and depression F41.9; F32.A
--- OUTSIDE RECORDS SUMMARY | 2025-03-26 15:49 | XMS_ITS | Clinical Summary ---
Author Organization [facility] it Address [address] [place] [address] Care Team Providers Care Figure Model Name Role Phone Marii Stack MD Primary Care Provider [phone] Surgical History Surgery Date Site/Laterality Comments CHOLECYSTECTOMY PROCEDURE: [place] LAPAROSCOPY SURG CHOLECYSTECTOMY HYSTERECTOMY PROCEDURE: HISTORICAL HYSTERECTOMY OTHER SURGICAL HISTORY PROCEDURE: HISTORICAL SUPRACERVICAL HYSTERECTOMY W/O BSO GASTRIC BYPASS PROCEDURE: [place] GASTRIC RSTCV W/BYP W/SM INT RCNSTJ LIMIT [...] Cervical Cancer Screening: P ap Smear 1999 COVID-19 Vaccine (2023-2 5 season) 2024 Depression Screening 08/15/2024 Influenza Vaccine (#1) 2025 HIB Vaccines Aged Out No longer [...] 5 Years) and At-Risk Patients (6 to 49 Years) Aged Out No longer eligible b ased on patient's age to complete this topic RSV Immunization Patients Un latrice 20 months Aged Out No longer eligible b ased on patient's age to complete this topic Varicella Vaccines Aged Out No longer eligible based on patient's age to complete this topic Care Teams Figure Model Relationship Specialty Start Date End Date Marii Stack MD [address] [place] [address] PCP - General Internal Medicine 01/05/22
--- OUTSIDE RECORDS SUMMARY | 2025-03-26 15:49 | XMS_ITS | Patient Health Record ---
Author Organization [facility] Address [address], [place] [id number] Care Team Providers Care Fountain Server Name Role Phone Say - DO NOT USE, [facility] Primary Care Provider Unavailable Brian Goncalves Unavailable [phone] Reason For Referral No Information Plan Of Treatment No Information Insurance Providers Payer Name Payer Address Payer Phone Subscriber Number Group Number Insured Name Patient Relationship to Insured Coverage Start Date Coverage End Date [place] Medicaid Standard [address] [place] [address] [id number] Miladis Best Self - patient is the insured 3 3
== END 2025-03-26 16:12 | disposition home or self-care (01) ==
LOC: HO.HSM 14:59
PROVIDERS: PCP Internal Medicine; Visit Provider Registered Nurse
DX: M79.7 Fibromyalgia (principal); G43.909 Migraine, unspecified, not intractable, without status migrainosus; G44.209 Tension-type headache, unspecified, not intractable; G47.00 Insomnia, unspecified; M51.9 Unspecified thoracic, thoracolumbar and lumbosacral intervertebral disc disorder; F41.9 Anxiety disorder, unspecified; F32.A Depression, unspecified
CPT/HCPCS: 99214

== ENCOUNTER → 2025-03-26 14:58 | Outpatient (BNVA) | payer OTHER, SELFPAY | PROVIDERS: PCP Internal Medicine; Visit Provider Registered Nurse | DX: M79.7 Fibromyalgia (principal); G43.909 Migraine, unspecified, not intractable, without status migrainosus; G44.209 Tension-type headache, unspecified, not intractable; G47.00 Insomnia, unspecified; M51.9 Unspecified thoracic, thoracolumbar and lumbosacral intervertebral disc disorder; F41.9 Anxiety disorder, unspecified; F32.A Depression, unspecified | CPT/HCPCS: 99212 ==

== ENCOUNTER 2025-05-09 13:29 | Outpatient (AMB) | payer OTHER, SELFPAY ==
--- NOTE | 2025-05-09 14:05 | A.OFFVIS_ITS ---
Intake Visit Reasons: 6 weeks Allergies No Known Allergies Allergy (Verified 05/09/25 14:10) Medication List - Last Reconciled 05/09/25 by Mabel Milian CNP buspirone 10 mg PO BID celecoxib (Celebrex) 200 mg PO BID cholecalciferol (vitamin D3) 125 mcg PO DAILY cyanocobalamin (vitamin B-12) 500 mcg PO DAILY diclofenac sodium 75 mg PO BID PRN divalproex (Depakote) 250 mg PO BEDTIME 30 days doxepin (Silenor) 3 mg PO BEDTIME PRN dulaglutide (Trulicity) 4.5 mg subcut QWEEK duloxetine 60 mg PO DAILY gabapentin 800 mg PO TID hydroxyzine HCl 25 mg PO TID PRN prednisone 40 mg PO DAILY PRN sertraline 25 mg PO DAILY sumatriptan succinate 50 mg PO tizanidine 4 mg PO TID PRN verapamil ER 240 mg PO DAILY HPI Comments Details: Headaches were better with Depakote, which she was taking at bedtime. No medication side effects. Headaches were not as frequent or severe. Triggers included bright light, including the sun. Sumatriptan as needed did not help. Ongoing generalized body pains from FM, stable. Sleep was okay with medication. Mood was so-so, working with therapist and psychiatrist. She had surgery for R bunion yesterday. Previously, headaches were happening about 4x/week with photophobia and sonophobia, no nausea or vomiting. 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 Ongoing generalized body pains from FM. Following with [facility] and [facility]. Had injection to back and both hips which did not help much. Has numbness, needle-type and burning-type pain in legs. Was off duloxetine for period of time due to insurance issue, back on medication. Generalized body pains from FM, burning-type. Back pain all over, feels like ?pinching? or burning, worse if sitting or standing too long. Topiramate had helped with headaches some initially. Throbbing-type pain with photophobia and sonophobia, no nausea or vomiting. Pain in arms and hands. Always in pain, burning inside body, and lot of fatigue. Had stopped working. Pain whole body despite taking gabapentin and duloxetine. Bilateral lateral ankle pain and pain in right wrist and forearm. Since 2014, she has had pain all over her body, including her back, limbs proximally and distally, in the joints, and muscles. Around 2017, she started with numbness and tingling in her hands intermittently. No persistent numbness, burning, or tingling in her feet. No weakness. No trouble with cognitive abilities. No trouble with bladder or bowel control. [facility] Medical History (Updated 03/26/25 @ 16:09 by Mabel Milian CNP) Migraine Insomnia Tension headache Fibromyalgia Peripheral neuropathy Surgical History Hx of tubal ligation Hx of cholecystectomy Hx of abdominal hysterectomy History of sleeve gastrectomy Family History Mother Thyroid condition Diabetes Ovarian cancer Anemia Heart problem Father Heart problem Sister Heart problem Breast cancer Sister Anemia Diabetes Sister Diabetes Thyroid condition Sister No problems noted. Sister No problems noted. Brother Anemia Diabetes Brother No problems noted. Brother Diabetes Brother No problems noted. Brother No problems noted. Social History Alcohol intake: never Patient Tobacco Use Status: Never used Tobacco Review of Systems Const Denies chills, Denies daytime sleepiness, Reports difficulty sleeping, Reports fatigue, Denies fever(s), Denies frequent falls, Reports headache(s), Denies increased appetite, Denies poor appetite, Denies snoring, Denies weakness, Denies weight gain and Denies weight loss Eyes Denies loss of vision ENT Denies vertigo, Denies dizziness, Reports headache(s) and Reports neck pain Card Denies chest pain at rest, Denies chest pain with activity, Denies syncope, Denies leg edema, Denies palpitations, Denies dyspnea and Denies dyspnea on exertion Resp Denies cough, Denies dyspnea, Denies dyspnea on exertion and Denies snoring GI Denies abdominal pain, Denies constipation, Denies heartburn, Denies diarrhea and Denies nausea Denies urinary frequency, Denies urinary incontinence and Denies urinary urgency Musc Denies abnormal gait, Reports back pain, Reports myalgias, Reports arthralgias, Reports neck pain, Reports numbness and Denies tingling Neuro Denies abnormal gait, Denies vertigo, Denies dizziness, Denies syncope, Denies frequent falls, Reports headache(s), Denies lack of coordination, Denies loss of vision, Denies memory loss, Reports numbness, Denies Other visual disturbances, Denies restless legs, Denies seizure-like activity, Denies tingling, Denies paresthesias, Denies tremor(s) and Denies weakness Psych Reports anxiety, Reports depression, Denies auditory hallucinations, Denies memory loss and Denies visual hallucinations Endo Reports fatigue and Denies palpitations Physical Exam Const Other: General Appearance:? normal, in no acute distress. Heart:? S1, S2 normal, no murmurs. Lungs:? clear anteriorly and posteriorly. Musculoskeletal:? normal. Extremities:? no edema. Psych:? alert, oriented, cognitive function intact, cooperative with exam. Neuro Other: Abnormal Neurological Findings:?Submaximal effort on motor testing. Walking with crutches. Mental Status: alert and oriented X 3. Normal attention, orientation, memory, and affect. Cranial Nerves: Pupils are equal, round, and reactive to light. External ocular muscles are intact. Visual millan are full, no ptosis. Face is symmetrical, no facial weakness or droop. Facial sensations are normal. Tongue protrudes in midline. Palate elevates symmetrically. Shoulder shrugging is normal Motor Examination: As above, otherwise normal muscle tone, bulk and strength. No atrophy or fasciculations. No drift of the extended upper extremities. DTR 2+. Plantars are flexor. Sensory Exam: Normal light touch, temperature, pinprick, vibration, and joint- position sensations. Rhomberg sign is absent. Coordination: No ataxia. No titubation. Gait Exam: With crutches. Cerebellar Signs: [id number] is okay. Extrapyramidal System: No tremor, rigidity with normal facial expressions. No bradykinesia. No bradyphrenia. Normal arm swing and posture. No propulsion or retropulsion. Speech: Normal. No dysphasia or dysarthria. Results Reviewed Results Reviewed: [address] [address] [place] Report Signed Patient: Miladis Best MR#: [id number] : 1980 Acct:[id number] Age/Sex: 44 / F ADM Date: 12/05/24 Loc: HO.XRAY Attending Dr: Mable Milian CNP Ordering Physician: Mabel Milian CNP Date of Service: 12/05/24 Procedure(s): XR lumbar spine 2-3V Accession Number(s): [id number] cc: Marii Stack MD; Mabel Milian CNP~ EXAMINATION: XR LUMBOSACRAL SPINE CLINICAL INFORMATION: PAIN COMPARISON: None available. TECHNIQUE: Three views of the lumbosacral spine. FINDINGS: Marginal osteophyte formation and syndesmophyte formation at T11-12 T12-L1 levels. Endplate sclerosis and decreased intervertebral disc height involving the lower thoracic spine, L1-2, and L3-4. No acute cortical disruption or malalignment. No lytic or blastic lesions. Spina bifida occulta, S1. XR/XR lumbar spine 2-3V IMPRESSION: Multilevel lower thoracic and lumbar spondylosis, mild. Seronegative arthritis should be considered. Electronically signed by: Levi Escobar MD 12/07/2024 09:51 AM EDT RP Dictated By: Levi Dejesus MD Signed By: <Electronically signed by Levi Streeter MD in OV> 12/07/24 0951 -- 07/05/22 NCV/EMG ALL Normal motor and sensory nerve conduction velocities in the upper and lower extremities. Normal EMG in the left C5-T1 and left L4- S1 innervated muscles. Assessment & Plan Assessment & Plan (1) Migraine: Code(s): G43.909 - Migraine, unspecified, not intractable, without status migrainosus Category: Medical Qualifiers: Migraine type: unspecified Status migrainosus presence: without status migrainosus Intractability: not intractable Qualified Code(s): G43.909 - Migraine, unspecified, not intractable, without status migrainosus Plan: Continue Depakote 250mg 1 tablet at bedtime. Sumatriptan as needed did not help and medication was stopped. Start rizatriptan 10mg 1 tablet as needed for migraine, use/side effects reviewed. (2) Fibromyalgia: Code(s): M79.7 - Fibromyalgia Category: Medical Plan: Continue gabapentin 800mg 1 tablet three times a day. She was also taking duloxetine and prednisone which may also help with fibromyalgia symptoms. (3) Tension headache: Code(s): G44.209 - Tension-type headache, unspecified, not intractable Category: Medical (4) Insomnia: Code(s): G47.00 - Insomnia, unspecified Category: Medical Qualifiers: Insomnia type: unspecified Qualified Code(s): G47.00 - Insomnia, unspecified (5) Lumbar disc disease: Code(s): M51.9 - Unspecified thoracic, thoracolumbar and lumbosacral intervertebral disc disorder Category: Medical Plan: She was following with [facility] and [facility]. (6) Anxiety and depression: Code(s): F41.9 - Anxiety disorder, unspecified; F32.A - Depression, unspecified Category: Medical Plan: Continue to work with therapist and psychiatrist. She had phone number for crisis if needed. Plan Meds tried: amitriptyline, pregabalin, duloxetine, topiramate, sumatriptan Medications: New rizatriptan take 1 tab at onset of headache; if no relief may repeat 1 tab after at least 4 hrs; max = 2 tabs/24 hr PO 10 tabs 5RF 30 days Coding Level of Care Code Est Pt Level 4 (26282) Diagnoses Migraine without status migrainosus, not intractable, unspecified migraine type G43.909 Migraine type: unspecified Status migrainosus presence: without status migrainosus Intractability: not intractable Fibromyalgia M79.7 Tension headache G44.209 Insomnia, unspecified type G47.00 Insomnia type: unspecified Lumbar disc disease M51.9 Anxiety and depression F41.9; F32.A
--- OUTSIDE RECORDS SUMMARY | 2025-05-09 18:03 | XMS_ITS | Patient Health Record ---
Author Organization [facility] Address [address] [place] [address] Care Team Providers Care Wire Saw Operator Name Role Phone Say - NOT USE, [facility] Primary Care Provider Unavailable Brian Goncalves Unavailable [phone] Reason For Referral No Information Plan Of Treatment No Information Insurance Providers Payer Name Payer Address Payer Phone Subscriber Number Group Number Insured Name Patient Relationship to Insured Coverage Start Date Coverage End Date [place] Medicaid Standard [address] [place] [address] [id number] Miladis Best Self - patient is the insured 3 3
== END 2025-05-09 14:17 | disposition home or self-care (01) ==
LOC: HO.HSM 13:29
PROVIDERS: PCP Internal Medicine; Visit Provider Registered Nurse
DX: G43.909 Migraine, unspecified, not intractable, without status migrainosus (principal); M79.7 Fibromyalgia; G44.209 Tension-type headache, unspecified, not intractable; G47.00 Insomnia, unspecified; M51.9 Unspecified thoracic, thoracolumbar and lumbosacral intervertebral disc disorder; F41.9 Anxiety disorder, unspecified; F32.A Depression, unspecified
CPT/HCPCS: 99214

== ENCOUNTER → 2025-05-09 13:29 | Outpatient (BNVA) | payer OTHER, SELFPAY | PROVIDERS: PCP Internal Medicine; Visit Provider Registered Nurse | DX: M79.7 Fibromyalgia (principal); G43.909 Migraine, unspecified, not intractable, without status migrainosus; G44.209 Tension-type headache, unspecified, not intractable; G47.00 Insomnia, unspecified; M51.9 Unspecified thoracic, thoracolumbar and lumbosacral intervertebral disc disorder; F41.9 Anxiety disorder, unspecified; F32.A Depression, unspecified | CPT/HCPCS: 99212 ==

== ENCOUNTER 2025-07-02 11:37 | Outpatient (REF) | payer OTHER, SELFPAY | END 2025-07-02 11:38 | disposition home or self-care (01) | LOC: HO.LAB 11:37 | PROVIDERS: Visit Provider Registered Nurse | DX: G43.909 Migraine, unspecified, not intractable, without status migrainosus (principal) | CPT/HCPCS: 36415; 85652; 86140 ==

== ENCOUNTER 2025-08-06 09:57 | Outpatient (AMB) | payer OTHER, SELFPAY ==
--- NOTE | 2025-08-06 09:58 | MHC.OFFVIS ---
Intake Visit Reasons: 3m Allergies No Known Allergies Allergy (Verified 08/06/25 10:00) Medication List - Last Reconciled 08/06/25 by Mabel Milian CNP buspirone 15 mg PO TID celecoxib (Celebrex) 200 mg PO BID cholecalciferol (vitamin D3) 125 mcg PO DAILY cyanocobalamin (vitamin B-12) 500 mcg PO DAILY diclofenac sodium 75 mg PO BID PRN divalproex (Depakote) 500 mg (2 x 250 mg) PO BEDTIME 30 days doxepin 100 mg PO BEDTIME gabapentin 800 mg PO TID 30 days hydroxyzine HCl 25 mg PO TID PRN lorazepam mg PO rizatriptan take 1 tab at onset of headache; if no relief may repeat 1 tab after at least 4 hrs; max = 2 tabs/24 hr PO 30 days sertraline 25 mg PO DAILY tirzepatide (weight loss) (Zepbound) mg subcut verapamil ER 240 mg PO DAILY HPI Comments Details: She was doing okay. Depakote was helping with headaches, not as frequent or severe, no medication side effects. She had few headaches that were relieved with rizatriptan as needed. Triggers included bright lights, including the sun. Ongoing generalized body pains from FM. She was following with [facility] and had nerve block to back in 06/2025 which helped at first, but pain returned after doing some chores. No falls. She stopped duloxetine about a month or so ago. Her psychiatrist prescribed Rexulti, but she was hesitant to start medication. Sleep was okay. Previously, headaches were happening about 4x/week with photophobia and sonophobia, no nausea or vomiting. 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 Ongoing generalized body pains from FM. Following with [facility] and [facility]. Had injection to back and both hips which did not help much. Has numbness, needle-type and burning-type pain in legs. Was off duloxetine for period of time due to insurance issue, but then went back on medication. Generalized body pains from FM, burning-type. Back pain all over, feels like ?pinching? or burning, worse if sitting or standing too long. Topiramate had helped with headaches some initially. Throbbing-type pain with photophobia and sonophobia, no nausea or vomiting. Pain in arms and hands. Always in pain, burning inside body, and lot of fatigue. Had stopped working. Pain whole body despite taking gabapentin and duloxetine. Bilateral lateral ankle pain and pain in right wrist and forearm. Since 2014, she has had pain all over her body, including her back, limbs proximally and distally, in the joints, and muscles. Around 2017, she started with numbness and tingling in her hands intermittently. No persistent numbness, burning, or tingling in her feet. No weakness. No trouble with cognitive abilities. No trouble with bladder or bowel control. [facility] Medical History (Updated 03/26/25 @ 16:09 by Mabel Milian CNP) Migraine Insomnia Tension headache Fibromyalgia Peripheral neuropathy Surgical History Hx of tubal ligation Hx of cholecystectomy Hx of abdominal hysterectomy History of sleeve gastrectomy Family History Mother Thyroid condition Diabetes Ovarian cancer Anemia Heart problem Father Heart problem Sister Heart problem Breast cancer Sister Anemia Diabetes Sister Diabetes Thyroid condition Sister No problems noted. Sister No problems noted. Brother Anemia Diabetes Brother No problems noted. Brother Diabetes Brother No problems noted. Brother No problems noted. Social History Alcohol intake: never Patient Tobacco Use Status: Never used Tobacco Review of Systems Const Denies chills, Denies daytime sleepiness, Reports difficulty sleeping, Reports fatigue, Denies fever(s), Denies frequent falls, Reports headache(s), Denies increased appetite, Denies poor appetite, Denies snoring, Denies weakness, Denies weight gain and Denies weight loss Eyes Denies loss of vision ENT Denies vertigo, Denies dizziness, Reports headache(s) and Reports neck pain Card Denies chest pain at rest, Denies chest pain with activity, Denies syncope, Denies leg edema, Denies palpitations, Denies dyspnea and Denies dyspnea on exertion Resp Denies cough, Denies dyspnea, Denies dyspnea on exertion and Denies snoring GI Denies abdominal pain, Denies constipation, Denies heartburn, Denies diarrhea and Denies nausea Denies urinary frequency, Denies urinary incontinence and Denies urinary urgency Musc Denies abnormal gait, Reports back pain, Reports myalgias, Reports arthralgias, Reports neck pain, Reports numbness and Denies tingling Neuro Denies abnormal gait, Denies vertigo, Denies dizziness, Denies syncope, Denies frequent falls, Reports headache(s), Denies lack of coordination, Denies loss of vision, Denies memory loss, Reports numbness, Denies Other visual disturbances, Denies restless legs, Denies seizure-like activity, Denies tingling, Denies paresthesias, Denies tremor(s) and Denies weakness Psych Reports anxiety, Reports depression, Denies auditory hallucinations, Denies memory loss and Denies visual hallucinations Endo Reports fatigue and Denies palpitations Physical Exam Const Other: General Appearance:? normal, in no acute distress. Heart:? S1, S2 normal, no murmurs. Lungs:? clear anteriorly and posteriorly. Musculoskeletal:? normal. Extremities:? no edema. Psych:? alert, oriented, cognitive function intact, cooperative with exam. Neuro Other: Abnormal Neurological Findings:?Submaximal effort on motor testing. Mental Status: alert and oriented X 3. Normal attention, orientation, memory, and affect. Cranial Nerves: Pupils are equal, round, and reactive to light. External ocular muscles are intact. Visual millan are full, no ptosis. Face is symmetrical, no facial weakness or droop. Facial sensations are normal. Tongue protrudes in midline. Palate elevates symmetrically. Shoulder shrugging is normal Motor Examination: As above, otherwise normal muscle tone, bulk and strength. No atrophy or fasciculations. No drift of the extended upper extremities. DTR 2+. Plantars are flexor. Sensory Exam: Normal light touch, temperature, pinprick, vibration, and joint-position sensations. Rhomberg sign is absent. Coordination: No ataxia. No titubation. Gait Exam: Within normal limits. Cerebellar Signs: [id number] is okay. Extrapyramidal System: No tremor, rigidity with normal facial expressions. No bradykinesia. No bradyphrenia. Normal arm swing and posture. No propulsion or retropulsion. Speech: Normal. Results Reviewed Results Reviewed: Laboratory Tests 07/02/25 11:51 ESR 22 H C-Reactive Protein 0.32 LS Spine XR 12/05/2024: Multilevel lower thoracic and lumbar spondylosis, mild. Seronegative arthritis should be considered. 07/05/22 NCV/EMG ALL Normal motor and sensory nerve conduction velocities in the upper and lower extremities. Normal EMG in the left C5-T1 and left L4- S1 innervated muscles. Assessment & Plan Assessment & Plan (1) Migraine: Code(s): G43.909 - Migraine, unspecified, not intractable, without status migrainosus Category: Medical Qualifiers: Migraine type: unspecified Status migrainosus presence: without status migrainosus Intractability: not intractable Qualified Code(s): G43.909 - Migraine, unspecified, not intractable, without status migrainosus Plan: Continue Depakote 250mg 2 tablet at bedtime. Continue rizatriptan 10mg 1 tablet as needed for migraine. Follow up in 4 months or sooner as needed. (2) Fibromyalgia: Code(s): M79.7 - Fibromyalgia Category: Medical Plan: Continue gabapentin 800mg 1 tablet three times a day. (3) Tension headache: Code(s): G44.209 - Tension-type headache, unspecified, not intractable Category: Medical (4) Insomnia: Code(s): G47.00 - Insomnia, unspecified Category: Medical Qualifiers: Insomnia type: unspecified Qualified Code(s): G47.00 - Insomnia, unspecified (5) Lumbar disc disease: Code(s): M51.9 - Unspecified thoracic, thoracolumbar and lumbosacral intervertebral disc disorder Category: Medical Plan: She was following with [facility] and [facility]. (6) Anxiety and depression: Code(s): F41.9 - Anxiety disorder, unspecified; F32.A - Depression, unspecified Category: Medical Plan: Continue to work with therapist and psychiatrist. She had phone number for crisis if needed. Plan Meds tried: amitriptyline, pregabalin, duloxetine, topiramate, sumatriptan Medications: Refilled divalproex (Depakote) 500 mg (2 x 250 mg) PO BEDTIME 60 tabs 5RF 30 days rizatriptan take 1 tab at onset of headache; if no relief may repeat 1 tab after at least 4 hrs; max = 2 tabs/24 hr PO 10 tabs 5RF 30 days gabapentin 800 mg PO TID 90 tabs 5RF 30 days Coding Level of Care Code Est Pt Level 4 (32355) Diagnoses Migraine without status migrainosus, not intractable, unspecified migraine type G43.909 Migraine type: unspecified Status migrainosus presence: without status migrainosus Intractability: not intractable Fibromyalgia M79.7 Tension headache G44.209 Insomnia, unspecified type G47.00 Insomnia type: unspecified Lumbar disc disease M51.9 Anxiety and depression F41.9; F32.A
--- OUTSIDE RECORDS SUMMARY | 2025-08-06 10:52 | XMS_ITS | Clinical Summary ---
Author Organization [facility] [employer] [facility] it Address [address] [place] [address] Care Team Providers Care Call Center Analyst Name Role Phone Marii Stack MD Primary Care Provider [phone] Surgical History Surgery Date Site/Laterality Comments CHOLECYSTECTOMY PROCEDURE: [place] LAPAROSCOPY SURG CHOLECYSTECTOMY HYSTERECTOMY PROCEDURE: HISTORICAL HYSTERECTOMY OTHER SURGICAL HISTORY PROCEDURE: HISTORICAL SUPRACERVICAL HYSTERECTOMY W/O BSO GASTRIC BYPASS PROCEDURE: [place] GASTRIC RSTCV W/BYP W/SM INT RCNSTJ LIMIT [...] on file Sexual Orientation Not on file Last Filed Vital Signs Vital Sign Reading [...] Cervical Cancer Screening: P ap Smear 1999 Depression Screening 08/15/2024 COVID-19 Vaccine (1 - 2024-2 6 season) 2025 Influenza Vaccine (#1) 2025 RSV Immunization Adult Patie nts (1 - 1-dose 75+ series) 2053 HIB Vaccines Aged Out No longer eligi [...] age to complete this topic Care Teams Call Center Analyst Relationship Specialty Start Date End Date Marii Stack MD [address] [place] [address] PCP - General Internal Medicine 01/05/22
--- OUTSIDE RECORDS SUMMARY | 2025-08-06 10:52 | XMS_ITS | Patient Health Record ---
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
== END 2025-08-06 10:18 | disposition home or self-care (01) ==
PROVIDERS: PCP Internal Medicine; Visit Provider Registered Nurse
DX: G43.909 Migraine, unspecified, not intractable, without status migrainosus (principal); M79.7 Fibromyalgia; G44.209 Tension-type headache, unspecified, not intractable; G47.00 Insomnia, unspecified; M51.9 Unspecified thoracic, thoracolumbar and lumbosacral intervertebral disc disorder; F41.9 Anxiety disorder, unspecified; F32.A Depression, unspecified
CPT/HCPCS: 99214

== ENCOUNTER → 2025-08-06 09:57 | Outpatient (BNVA) | payer OTHER, SELFPAY | PROVIDERS: PCP Internal Medicine; Visit Provider Registered Nurse | DX: G43.909 Migraine, unspecified, not intractable, without status migrainosus (principal); M79.7 Fibromyalgia; G44.209 Tension-type headache, unspecified, not intractable; G47.00 Insomnia, unspecified; M51.9 Unspecified thoracic, thoracolumbar and lumbosacral intervertebral disc disorder; F41.9 Anxiety disorder, unspecified; F32.A Depression, unspecified; Z79.899 Other long term (current) drug therapy | CPT/HCPCS: 99212 ==